=== PATIENT | male | born 1985 | race African-American/Black ===

== ENCOUNTER 2022-01-02 22:51 | Emergency (ER) | payer SELFPAY ==
[2022-01-02] MEDS ORDERED: Tetracaine 0.5% PF 4 ML BOT ONE (23:49)
[2022-01-02] MEDS ORDERED: Fluorescein Opthalmic Strip ONE (23:50)
[2022-01-03] MEDS ORDERED: Erythromycin Base 0.5% Oint 1 GM TUBE ONE (00:27)
== END 2022-01-03 00:26 | disposition home or self-care (01) ==
LOC: CSHERS 22:51
DX: H16.133 Photokeratitis, bilateral (principal)
CPT/HCPCS: 99283